=== PATIENT | female | born 1985 | race American Indian/Alaskan Native ===

== ENCOUNTER 2016-05-15 22:25 | Outpatient (CLI) | payer OTHER, MEDICAID ==
[2016-05-15] MEDS ORDERED: LACTATED RINGERS 1,000 ML IV ONE (23:15)
[2016-05-15 23:42] LABS: Bacteria,Urine 1+ /HPF (Negative); Bilirubin,Urine NEG (Negative); Blood,Urine SM (Negative); Ketones,Urine 80 mg/dL (Negative); Leukocyte Esterase,Urine MOD (Negative); Mucus,Urine 2+ /HPF; Nitrite,Urine NEG (Negative); Protein,Urine <15 mg/dL mg/dL (Negative); Urobilinogen,Urine < 2.0 mg/dL (<2.0)
[2016-05-15] MEDS ORDERED: BRETHINE SUB-Q SCH (23:45)
[2016-05-16] MEDS ORDERED: LACTATED RINGERS 1,000 ML IV ONE (01:17)
[2016-05-16] MEDS ORDERED: MACROBID PO ONE ×2 (01:17→01:23)
[2016-05-16] MEDS ORDERED: PROCARDIA*For Tocolysis only PO ONE (01:24)
[2016-05-16] MEDS ORDERED: ZOFRAN IM ONE (01:37)
[2016-05-16] MEDS ORDERED: ZOFRAN ONE (01:39)
[2016-05-16 01:50] VITALS: BP 136/72
[2016-05-16] MEDS ORDERED: TYLENOL PO ONE (02:46)
[2016-05-16] MEDS ORDERED: VISTARIL PO ONE (03:28)
--- NOTE | 2016-05-16 10:44 | Ultrasound Report ---
ULTRASOUND OB LIMITED ULTRASOUND OB TRANSVAGINAL History: well being, contractions, measure cervix Technique: Transabdominal and transvaginal ultrasound with Doppler interrogation. Gestation: Single Position: Cephalic Heart Rate: 160 BPM Cervical length: 3.0 cm (Normal > 3 cm)
== END 2016-05-16 03:58 | disposition home or self-care (01) ==
LOC: TRG 22:25
PROVIDERS: ATTEND Obstetrics & Gynecology
DX: O47.03 False labor before 37 completed weeks of gestation, third trimester (principal); Z3A.31 31 weeks gestation of pregnancy
CPT/HCPCS: 36415; 76815; 76817; 81001; 82731; 96360; 96361; 96374; J2405; J7120; Q0177

== ENCOUNTER 2016-06-28 08:30 | Inpatient (IN) | payer OTHER, MEDICAID ==
--- NOTE | 2016-06-28 08:38 | History and Physical Report ---
History of Present Illness Date of examination: 06/28/16 Date of admission: 06/28/16 08:30 Chief complaint: Here for labor induction at 38 weeks for CHTN, diabetes History of present illness: 30 y/o G4 P 2 now 38 weeks with CHTN and Diabetes here for labor induction. care at [facility] since 12 weeks gestation.Taking Labetalol 100 mg po bid, diet controlled gestational diabetes. Past History Past Medical History: hypertension, diabetes, kidney stones, other (migraines) Past Surgical History: D&C Family/Genetic History: cancer Social history: no significant social history - Obstetrical History Expected Date of Delivery: 07/12/16 Actual Gestation: 38 Week(s) 0 Day(s) : 4 Para: 2 Hx # Term Pregnancies: 1 Number of Pregnancies: 1 Induced : 1 Number of Living Children: 2 Medications and Allergies Allergies Allergy/AdvReac Type Severity Reaction Status Date / Time cephalexin monohydrate Allergy Itching Verified 02/09/16 17:25 [From Gemvara] Home Medications Medication Instructions Recorded Confirmed Last Taken Type Nitrofurantoin [place]/M-Cryst 100 mg PO Q12HR #14 capsule 05/16/16 Unknown Rx [Macrobid CAP] Review of Systems All systems: negative - Physical Exam Breasts: Positive: deferred Cardiovascular: Regular rate Lungs: Positive: Clear to auscultation Abdomen: Positive: soft Genitourinary (Female): Positive: normal external genitalia, normal perenium Vulva: both: normal Vagina: Positive: normal moisture Uterus: Positive: enlarged Anus/Rectum: Positive: normal perianal skin Deep Tendon Reflex Grade: Normal +2 - Obstetrical FHR: category 1 Uterine Contraction Monitor Mode: External Cervical Dilatation: 4 Cervical Effacement Percentage: 80 station: -2 Uterine Contraction Pattern: Irregular Uterine Contraction Intensity: Mild Results All other labs normal. Assessment and Plan A: IUP @ 38 weeks, CHTN, diabetes P: Pitocin induction
[2016-06-28] MEDS ORDERED: MINERAL OIL PO PRN (09:00)
[2016-06-28] MEDS ORDERED: XYLOCAINE 2% INFILTRATI ONE (09:00)
[2016-06-28] MEDS ORDERED: SUBLIMAZE IV PRN (09:00)
[2016-06-28] MEDS ORDERED: ePHEDrine SULFATE IV PRN ×2 (09:00→12:31)
[2016-06-28] MEDS ORDERED: PITOCin/NS 20 UNIT/1000ML DRIP 20 UNITS/1,000 ML BAG IV SCH ×2 (09:00→21:00)
[2016-06-28] MEDS ORDERED: BRETHINE SUB-Q PRN (09:30)
[2016-06-28] MEDS ORDERED: BRETHINE IVP PRN (09:30)
[2016-06-28 09:36] LABS: Hematocrit 30.9 % (30.3-42.9); Hemoglobin 9.9 gm/dl (10.1-14.3); Mean Corpuscular HGB Conc 32 % (30-34); Mean Corpuscular Hemoglobin 28 pg (28-32); Mean Corpuscular Volume 89 fl (79-97); Platelet Count 208 K/mm3 (140-440); Red Blood Count 3.47 M/mm3 (3.65-5.03); Red Cell Distribution Width 17.8 % (13.2-15.2); White Blood Count 9.1 K/mm3 (4.5-11.0)
[2016-06-28] MEDS: LACTATED RINGERS 1,000 ML IV SCH ×3 (10:01→17:01)
[2016-06-28] MEDS: PITOCin/NS 30 UNIT/500ML 30 UNITS/500 ML BAG IV SCH ×7 (10:03→17:41)
[2016-06-28] MEDS ORDERED: NARCAN 2 MG/2 ML IV PRN (12:31)
--- NOTE | 2016-06-28 12:31 | Anesthesia Consultation ---
Anesthesia Consult and Med Hx Date of service: 06/28/16 - Airway Anesthetic Teeth Evaluation: Good ROM Head & Neck: Adequate Mental/Hyoid Distance: Adequate Mallampati Class: Class II Intubation Access Assessment: Probably Good - Pre-Operative Health Status ASA Pre-Surgery Classification: ASA3 Proposed Anesthetic Plan: Epidural, Spinal - Pulmonary Hx Asthma: No COPD: No - Cardiovascular System Hx Hypertension: Yes (prior to current , PIH) - Central Nervous System Hx Seizures: No Hx Psychiatric Problems: No - Endocrine Hx Renal Disease: Yes (frequent kidney stones removals) Hx End Stage Renal Disease: No Hx Hypothyroidism: No Hx Hyperthyroidism: No - Hematic Hx Anemia: No Hx Sickle Cell Disease: No - Other Systems Hx Alcohol Use: No Hx Obesity: Yes (BMI 44.9)
[2016-06-28] MEDS ORDERED: fentaNYL-BUPIV 2 MCG/ML-0.125% 200 MCG/100 ML BAG EPIDURAL SCH (13:00)
--- NOTE | 2016-06-28 13:58 | Event Note ---
Date: 06/28/16 S: Feeling better O; VE 80/-1, Cat I tracing, UC's every 2-3 min but mild A: Induction of labor P: Resume Pitocin
[2016-06-28] MEDS ORDERED: ZOFRAN IV PRN (16:36)
[2016-06-28] MEDS ORDERED: NACL 0.9% 1000 ML 1,000 ML ONE (18:01)
--- NOTE | 2016-06-28 18:12 | Event Note ---
Date: 06/28/16 O: VE /-1, CAT I tracing, internals x 2 placed, Amnioinfusion started, UC's q 2-3 min on 5mu of Pit A: Pitocin induction of labor at 38 weeks for CHTN, diabetes P: Will recheck in one hour
[2016-06-28] MEDS ORDERED: REGLAN ONE (18:28)
[2016-06-28] MEDS ORDERED: BICITRA ONE (18:28)
[2016-06-28] MEDS ORDERED: PEPCID IV ONE (18:28)
--- NOTE | 2016-06-28 18:32 | Event Note ---
Date: 06/28/16 O: now CAT 2 tracing, pitocin and amnioinfusion stopped, no change in cervix A: Arrest of dilatation, intolerance of labor P: Dr. Johnson notified of need for
[2016-06-28] MEDS ORDERED: CLEOCIN 900 MG/50 mL 900 MG/50 ML BAG IV SCH (18:50)
[2016-06-28] MEDS ORDERED: CLEOCIN 900 MG/50 mL 900 MG/50 ML BAG IV ONE (18:50)
[2016-06-28] MEDS ORDERED: XYLOCAINE CARDIAC IV ONE ×3 (19:27)
[2016-06-28] MEDS ORDERED: NACL 0.9% IR ONE (19:30)
[2016-06-28] MEDS ORDERED: WATER FOR IRRIG STERILE IR ONE (19:30)
[2016-06-28] MEDS ORDERED: ZOFRAN ONE (19:33)
[2016-06-28] MEDS ORDERED: GARAMYCIN/NS 100 MG/100 ML 100 MG/100 ML BAG IV SCH (20:00)
[2016-06-28] MEDS ORDERED: VERSED ONE (20:24)
[2016-06-28] MEDS ORDERED: MYLICON PO PRN (20:45)
[2016-06-28] MEDS ORDERED: TYLENOL PO PRN (20:45)
[2016-06-28] MEDS ORDERED: LANSINOH TP PRN (20:45)
[2016-06-28] MEDS ORDERED: SENOKOT PO PRN (20:45)
[2016-06-28] MEDS ORDERED: MILK OF MAGNESIA PO PRN (20:45)
[2016-06-28] MEDS ORDERED: NARCAN 0.4 MG/1 ML IV PRN (20:45)
[2016-06-28] MEDS ORDERED: ANUCORT-HC PR PRN (20:45)
[2016-06-28] MEDS ORDERED: TUCKS PAD TP PRN (20:45)
--- NOTE | 2016-06-28 20:45 | Operative Report ---
Operative Report Operative Report: DATE: 06/28/2016 PREOPERATIVE DIAGNOSIS: 30-year-old at 38 weeks, chronic hypertension, gestational diabetes, category 2 tracing, morbid obesity POSTOP DIAGNOSIS: As above plus impacted caput NAME OF PROCEDURE: Primary low transverse section SURGEON: MARIA C HORNER MD REGIONAL EDUCATION COORDINATOR: [] ANESTHESIA: Epidural EBL: 750 mL PATHOLOGY SPECIMEN: None URINE OUTPUT: 1500 mL (bloody prior to surgery) FINDINGS: Female infant in cephalic presentation, time of delivery was 1944, Apgars 8 and 9, infant weight 6 lbs. 6 oz. or 2906 grams, obese with significant subcutaneous tissue, normal uterus ovaries and tubes bilaterally DESCRIPTION OF PROCEDURE: After informed consent, patient was taken to the operating room where she was prepped and draped in a sterile fashion. Pfannestial incision was performed 2 cm above the pubic symphysis. This was then carried down to the underlying rectus fascia which was scored in the midline. The fascial incision was extended laterally with the use of Arita scissors, anterior leaf was then grasped with Gab's elevated dissected sharply and bluntly off the underlying rectus. In a similar fashion the inferior leaf was grasped elevated dissected sharply and bluntly off the underlying rectus. The rectus was in the midline and the peritoneal cavity was entered without difficulty. After good visualization of the bladder the peritoneal layer was extended up and down; bladder blade was placed in the patient's pelvic cavity, bladder flap was created without difficulty. A hysterotomy incision was then performed with clear amniotic fluid noted. Infant in cephalic presentation was delivered without difficulty in the usual manner; cord was clamped cut and was handed over to waiting NICU staff. The placenta was then delivered intact, the uterus was then exteriorized cleared of all clots and debris. Her hysterotomy incision was then closed in a running locked fashion with 0 Vicryl on a CTX; using the same suture were able to imbricate the initial layer. The uterus was then returned to the patient's pelvic cavity; the peritoneal edges were grasped with hemostats and Liliana's; irrigation was used to clear the gutters of all clots and debris. Tisseel hemostatic agent was applied copiously over the hysterotomy incision. The peritoneal layer was closed in a running fashion with 3-0 Vicryl; the rectus was reapproximated with a single [id number] stitch. The fascia was then closed in a running fashion with 0 Vicryl; the subcutaneous layer was reapproximated with a single [id number] stitch. The skin was then closed in a subcuticular manner with 4-0 Monocryl. She tolerated the procedure well lap and instrument counts were correct 2, she did receive Clindamycin and Gentamicin prior to the procedure. She is transferred to PACU in stable condition.
[2016-06-28] MEDS ORDERED: MORPHINE ONE (20:46)
[2016-06-28] MEDS ORDERED: D50W (25GM) IV PRN (20:48)
[2016-06-28] MEDS ORDERED: PHENERGAN PO PRN (20:56)
[2016-06-28] MEDS ORDERED: PHENERGAN PR PRN (20:56)
--- NOTE | 2016-06-28 20:58 | Post Anesthesia Evaluation ---
- Post Anesthesia Evaluation Patient Participated: Yes Airway Patent: Yes Stable Respiratory Function: Yes Temp > 96.8F: Yes Pain Manageable: Yes Adequeate Hydration: Yes Anesthesia Complications: No Block Receding Appropriately: Yes
[2016-06-28] MEDS ORDERED: SODIUM CHLORIDE FLUSH SYRINGE 10 ML IV NR (21:00)
[2016-06-28] MEDS ORDERED: DEMEROL IV PRN (21:08)
[2016-06-28] MEDS: TORADOL IV PRN (21:32)
[2016-06-28] MEDS: NORMODYNE PO SCH (21:40)
[2016-06-28] MEDS ORDERED: APRESOLINE IV ONE (22:03)
[2016-06-28] MEDS ORDERED: NACL 0.9% 1000 ML 1,000 ML IV SCH (23:00)
[2016-06-28] MEDS: PERCOCET 5/325 PO PRN (23:40)
[2016-06-29] MEDS: TORADOL IV PRN (03:10)
[2016-06-29] MEDS: PERCOCET 5/325 PO PRN ×4 (06:45→22:02)
--- NOTE | 2016-06-29 08:00 | Progress Note ---
Subjective Date of service: 06/29/16 Principal diagnosis: s/p , POD 1 Interval history: Patient is s/p under neuraxial anesthesia. Patient complains of pain in her upper back which feels like a pulled muscle. She reports that she has not been able sit up due to pain. Percocet has not been helping. Denies headache. This started after the . Discussed with patient that it may be from how she was positioned during the . She otherwise has no weakness or numbness in her lower extremities. Ordered Flexeril PRN to help with muscle spasms. Objective - Constitutional Vitals: Vital Signs - 12hr 06/28/16 06/28/16 06/28/16 20:47 20:49 20:50 Temperature 98.2 F Pulse Rate 109 H Pulse Rate [ Left] Respiratory 29 H Rate Blood Pressure 133/91 Blood Pressure [Left Arm] O2 Sat by Pulse 93 98 Oximetry 06/28/16 06/28/16 06/28/16 20:55 21:01 21:05 Temperature Pulse Rate 116 H 105 H Pulse Rate [ Left] Respiratory 13 16 26 H Rate Blood Pressure 133/91 129/90 166/87 Blood Pressure [Left Arm] O2 Sat by Pulse 99 100 100 Oximetry 06/28/16 06/28/16 06/28/16 21:10 21:15 21:20 Temperature Pulse Rate 92 H 88 101 H Pulse Rate [ Left] Respiratory 12 14 23 Rate Blood Pressure 185/96 147/77 155/83 Blood Pressure [Left Arm] O2 Sat by Pulse 98 98 98 Oximetry 06/28/16 06/28/16 06/28/16 21:25 21:30 21:32 Temperature Pulse Rate 97 H 84 Pulse Rate [ Left] Respiratory 31 H 28 H 22 Rate Blood Pressure 156/79 162/81 Blood Pressure [Left Arm] O2 Sat by Pulse 98 97 Oximetry 06/28/16 06/28/16 06/28/16 21:35 21:40 21:45 Temperature Pulse Rate 85 93 H 80 Pulse Rate [ Left] Respiratory 22 17 Rate Blood Pressure 152/66 155/78 155/76 Blood Pressure [Left Arm] O2 Sat by Pulse 99 99 Oximetry 06/28/16 06/28/16 06/28/16 21:50 21:55 22:00 Temperature 98.4 F Pulse Rate 79 81 82 Pulse Rate [ Left] Respiratory 23 16 Rate Blood Pressure 164/82 162/84 162/84 Blood Pressure [Left Arm] O2 Sat by Pulse 99 98 Oximetry 06/28/16 06/28/16 06/28/16 22:01 22:05 22:09 Temperature Pulse Rate 84 86 Pulse Rate [ Left] Respiratory 16 31 H Rate Blood Pressure 156/73 159/77 157/67 Blood Pressure [Left Arm] O2 Sat by Pulse 98 97 Oximetry 06/28/16 06/29/16 06/29/16 22:30 00:00 04:00 Temperature 98.6 F 98.6 F 98.6 F Pulse Rate Pulse Rate [ 88 84 86 Left] Respiratory 16 16 16 Rate Blood Pressure Blood Pressure 173/75 157/76 135/69 [Left Arm] O2 Sat by Pulse Oximetry - Labs CBC & Chem 7: 06/28/16 09:15 Labs: Abnormal lab results 06/28/16 Range/Units 09:15 RBC 3.47 L (3.65-5.03) M/mm3 Hgb 9.9 L (10.1-14.3) gm/dl RDW 17.8 H (13.2-15.2) %
[2016-06-29 10:05] LABS: Hematocrit 24.1 % (30.3-42.9); Hemoglobin 7.7 gm/dl (10.1-14.3)
[2016-06-29] MEDS: FLEXERIL PO PRN ×2 (10:30→17:47)
[2016-06-29] MEDS: NORMODYNE PO SCH ×2 (10:33→22:01)
[2016-06-29] MEDS: FEOSOL PO SCH (10:33)
[2016-06-29] MEDS: PRENATAL VITAMIN PO SCH (10:34)
--- NOTE | 2016-06-29 11:36 | Progress Note ---
Assessment and Plan A: POD #1 Asymptomatic Anemia P: Follow routine postop orders D/C [place] and encourage increased ambulation Infed 100mg IM x 1 dose Subjective - Subjective Date of service: 06/29/16 Principal diagnosis: s/p , POD 1 Patient reports: appetite normal, voiding normally ([place] in place; adquate urine ouput), pain well controlled, ambulating normally [place]: doing well, bottle feeding Objective - Vital Signs Latest vital signs: Vital Signs Temp Pulse Pulse Resp BP BP Pulse Ox 06/29/16 08:01 97.9 F 88 20 135/72 06/29/16 04:00 98.6 F 86 16 135/69 06/29/16 00:00 98.6 F 84 16 157/76 06/28/16 22:30 98.6 F 88 16 173/75 06/28/16 22:09 157/67 06/28/16 22:05 86 31 H 159/77 97 06/28/16 22:01 84 16 156/73 98 06/28/16 22:00 82 162/84 06/28/16 21:55 81 16 162/84 98 06/28/16 21:50 98.4 F 79 23 164/82 99 06/28/16 21:45 80 17 155/76 99 06/28/16 21:40 93 H 155/78 06/28/16 21:35 85 22 152/66 99 06/28/16 21:32 22 06/28/16 21:30 84 28 H 162/81 97 06/28/16 21:25 97 H 31 H 156/79 98 06/28/16 21:20 101 H 23 155/83 98 06/28/16 21:15 88 14 147/77 98 06/28/16 21:10 92 H 12 185/96 98 06/28/16 21:05 105 H 26 H 166/87 100 06/28/16 21:01 16 129/90 100 06/28/16 20:55 116 H 13 133/91 99 06/28/16 20:50 109 H 29 H 133/91 98 06/28/16 20:49 98.2 F 06/28/16 20:47 93 06/28/16 18:37 91 H 180/96 06/28/16 18:33 101 H 99 05/19/17 18:28 89 100 05/19/17 18:23 91 H 162/82 100 05/19/17 18:18 95 H 100 05/19/17 18:13 78 100 05/19/17 18:08 73 100 05/19/17 18:07 75 141/66 05/19/17 18:03 77 100 05/19/17 17:58 81 100 05/19/17 17:56 81 146/66 05/19/17 17:53 77 100 05/19/17 17:51 78 153/88 05/19/17 17:48 85 100 05/19/17 17:43 89 100 05/19/17 17:38 78 100 05/19/17 17:37 83 144/83 05/19/17 17:33 80 100 05/19/17 17:28 89 100 05/19/17 17:23 75 100 05/19/17 17:22 69 154/79 05/19/17 17:18 73 100 05/19/17 17:13 84 100 05/19/17 17:08 95 H 100 05/19/17 17:07 89 150/75 05/19/17 17:03 70 100 05/19/17 16:58 68 100 05/19/17 16:53 73 100 05/19/17 16:51 74 151/84 05/19/17 16:48 76 100 05/19/17 16:43 82 100 05/19/17 16:38 76 100 05/19/17 16:37 82 145/82 05/19/17 16:33 86 100 05/19/17 16:28 77 100 05/19/17 16:23 94 H 134/62 100 05/19/17 16:18 80 100 05/19/17 16:13 89 100 05/19/17 16:08 86 100 05/19/17 16:06 83 140/83 05/19/17 16:03 95 H 100 05/19/17 15:51 80 139/79 05/19/17 15:38 85 133/75 05/19/17 15:21 78 139/78 05/19/17 15:08 75 133/74 05/19/17 14:52 71 133/72 05/19/17 14:38 65 139/72 05/19/17 14:23 72 138/73 100 05/19/17 14:17 72 100 05/19/17 14:12 67 100 05/19/17 14:08 70 139/72 05/19/17 14:07 70 100 05/19/17 14:02 80 100 05/19/17 13:57 71 100 05/19/17 13:52 82 152/76 100 05/19/17 13:47 80 100 05/19/17 13:42 81 100 05/19/17 13:37 81 141/79 100 05/19/17 13:32 74 100 05/19/17 13:27 73 100 05/19/17 13:22 77 100 05/19/17 13:21 78 149/77 05/19/17 13:17 73 100 05/19/17 13:15 74 141/70 05/19/17 13:12 70 100 05/19/17 13:10 73 138/81 05/19/17 13:07 83 100 05/19/17 13:06 73 139/81 05/19/17 13:02 70 100 05/19/17 13:00 69 142/77 05/19/17 12:57 76 100 05/19/17 12:56 66 149/73 05/19/17 12:52 68 100 05/19/17 12:51 63 145/68 05/19/17 12:47 67 100 05/19/17 12:45 87 141/80 05/19/17 12:42 68 100 05/19/17 12:40 74 143/76 05/19/17 12:38 76 143/74 05/19/17 12:37 81 100 05/19/17 12:32 77 99 05/19/17 12:30 75 152/90 05/19/17 12:27 75 99 05/19/17 12:23 71 149/83 05/19/17 12:22 65 98 05/19/17 12:21 81 156/78 05/19/17 12:19 81 162/82 05/19/17 12:17 81 162/78 96 05/19/17 12:15 79 196/92 05/19/17 12:13 83 213/101 05/19/17 12:12 77 97 05/19/17 12:11 83 212/102 05/19/17 12:07 79 96 05/19/17 12:06 80 229/96 06/28/16 12:01 76 93 06/28/16 11:56 72 97 06/28/16 11:55 75 94 06/28/16 11:52 22 06/28/16 11:51 103 H 96 06/28/16 11:50 90 166/90 06/28/16 11:48 98 H 91 06/28/16 11:45 86 98 06/28/16 11:40 94 H 97 06/28/16 11:35 86 99 Intake and Output 06/28/16 06/29/16 06/29/16 22:59 06:59 14:59 Intake Total 2950 400 360 Output Total 650 800 900 Balance 2300 -400 -540 Intake: IV 2950 Lactated Ringers 1,000 ml 1000 @ 125 mls/hr IV DIRECT [place] Rx#:[id number] Oral 360 Intake, Free Water 400 Output: Urine 650 800 900 Indwelling Catheter 200 800 900 Other: Total, Intake Amount 240 Total, Output Amount 200 800 500 Estimated Blood Loss 750 - Exam Breasts: Present: normal Cardiovascular: Present: Regular rate Lungs: Present: Clear to auscultation, Normal air movement Abdomen: Present: normal appearance, soft, normal bowel sounds Uterus: Present: normal, firm, fundal height below umbilicus Extremities: Present: normal Incision: Present: normal, dry, dressed - Labs Labs: Abnormal lab results 06/29/16 Range/Units 09:41 Hgb 7.7 L (10.1-14.3) gm/dl Hct 24.1 L D (30.3-42.9) %
[2016-06-29] MEDS: MOTRIN PO PRN ×2 (12:00→17:46)
[2016-06-29] MEDS ORDERED: INFED IM NR (12:00)
[2016-06-30] MEDS: MOTRIN PO PRN ×3 (00:33→18:47)
[2016-06-30] MEDS: PERCOCET 5/325 PO PRN ×3 (04:42→18:47)
[2016-06-30] MEDS: FEOSOL PO SCH ×3 (09:25→21:51)
[2016-06-30] MEDS: NORMODYNE PO SCH ×2 (09:25→21:52)
[2016-06-30] MEDS: PRENATAL VITAMIN PO SCH (09:25)
--- NOTE | 2016-06-30 12:26 | Progress Note ---
Assessment and Plan A: POD #1 Asymptomatic Anemia CHTN GDM P: Follow Routine PostOp Orders Increase FESO4 to TID Continue Labetolol as ordered D/C Home in the AM RTO in One Week Plans Mirena IUD Subjective - Subjective Date of service: 06/30/16 Principal diagnosis: s/p , POD 1 Patient reports: appetite normal, voiding normally, pain well controlled, flatus , ambulating normally : doing well, bottle feeding Objective - Vital Signs Latest vital signs: Vital Signs Temp Pulse Pulse Pulse Resp BP BP 06/30/16 08:05 98.7 F 100 H 20 06/30/16 04:42 18 06/30/16 00:33 18 06/30/16 00:00 98.6 F 77 16 134/64 06/29/16 22:01 88 132/70 06/29/16 16:20 97.7 F 89 20 130/63 06/29/16 13:20 98.8 F 93 H 20 105/50 BP 06/30/16 08:05 143/79 06/30/16 04:42 06/30/16 00:33 06/30/16 00:00 06/29/16 22:01 06/29/16 16:20 06/29/16 13:20 Intake and Output 06/29/16 06/30/16 06/30/16 22:59 06:59 14:59 Intake Total 480 700 480 Output Total 300 Balance 180 700 480 Intake: Oral 480 300 480 Intake, Free Water 400 Output: Urine 300 Void 300 Other: Total, Intake Amount 480 300 480 Total, Output Amount 300 # Voids Void 1 - Exam Breasts: Present: normal Cardiovascular: Present: Regular rate Lungs: Present: Clear to auscultation, Normal air movement Abdomen: Present: normal appearance, soft, normal bowel sounds Uterus: Present: normal, firm, fundal height below umbilicus Extremities: Present: normal Incision: Present: normal, dry, intact - Labs Labs: Abnormal lab results 06/29/16 Range/Units 07:58 POC Glucose 112 H (70-105)
--- NOTE | 2016-06-30 12:27 | Discharge Summary ---
Providers - Providers Date of Admission: 06/28/16 08:30 Date of discharge: 07/01/16 Attending physician: DEBORAH AWRE MD Primary care physician: DEBORAH WARE MD Hospitalization Reason for admission: induction of labor Delivery: Procedure: primary low transverse Episiotomy: none Laceration: none Incision: normal, dry, intact complications: none Discharge diagnosis: IUP at term delivered baby: female Condition at discharge: Good Disposition: DISCHARGED TO HOME OR SELFCARE Plan - Discharge Medications Prescriptions: Ibuprofen [Motrin 600 MG tab] 600 mg PO Q8H PRN #30 tablet PRN Reason: Pain Labetalol [Normodyne TAB] 200 mg PO BID #60 tablet Multivitamin with Iron [Multivitamins with Iron] 1 each PO DAILY #30 tablet oxyCODONE /ACETAMINOPHEN [Percocet 5/325] 1 tab PO Q6HR PRN #30 tablet PRN Reason: Pain - Provider Discharge Summary Activity: routine, no sex for 6 weeks, no heavy lifting 4 weeks, no strenuous exercise Diet: routine Instructions: routine Additional instructions: [] Smoking cessation referral if applicable(refer to patient education folder for contact #) [] Refer to [facility]'s [facility] Booklet Call your doctor immediately for: * Fever > 100.5 * Heavy vaginal bleeding ( >1 pad per hour) * Severe persistent headache * Shortness of breath * Reddened, hot, painful area to leg or breast * Drainage or odor from incision. * Keep incision clean and dry at all times and follow doctor's instructions regarding bathing/showering - Follow up plan Follow up: ERICA ZAPIEN CNM [Advanced Practice Nurse] - 7 Days
[2016-07-01] MEDS: PERCOCET 5/325 PO PRN ×2 (00:44→08:58)
[2016-07-01] MEDS: PRENATAL VITAMIN PO SCH (08:58)
[2016-07-01] MEDS: FEOSOL PO SCH (08:58)
[2016-07-01] MEDS: MOTRIN PO PRN ×2 (08:59→14:44)
[2016-07-01] MEDS: NORMODYNE PO SCH (10:44)
[2016-07-01 15:16] VITALS: BP 136/61
== END 2016-07-01 15:30 | disposition home or self-care (01) | DRG 765 ==
LOC: LD 08:30 → APU 21:24 → OB 22:26
PROVIDERS: ADMIT Obstetrics & Gynecology; ATTEND Obstetrics & Gynecology
PROC: 10D00Z1 Extraction of Products of Conception, Low, Open Approach (ICD-10-PCS; principal; 2016-06-28)
DX: O24.420 Gestational diabetes mellitus in childbirth, diet controlled (principal); O99.354 Diseases of the nervous system complicating childbirth; Z68.41 Body mass index [BMI] 40.0-44.9, adult; O10.92 Unspecified pre-existing hypertension complicating childbirth; G43.909 Migraine, unspecified, not intractable, without status migrainosus; O99.214 Obesity complicating childbirth; O90.81 Anemia of the puerperium; E66.01 Morbid (severe) obesity due to excess calories; O62.1 Secondary uterine inertia; Z3A.38 38 weeks gestation of pregnancy; Z37.0 Single live birth; Z87.442 Personal history of urinary calculi; Z80.9 Family history of malignant neoplasm, unspecified
CPT/HCPCS: 36415; 82962; 85014; 85018; 85027; 86850; 86900; 86901; 99211; C9250; G0463; J0360; J1580; J1750; J1885; J2001; J2175; J2250; J2270; J2405; J2590; J2765; J3010; J7030; J7120